=== PATIENT | male | born 1985 | race Caucasian/White ===

== ENCOUNTER 2018-10-17 19:15 | Emergency (ER) | payer OTHER ==
[2018-10-17] MEDS ORDERED: ONDANSETRON HCL INJ/PF 4 MG/2 ML SDV IV ONE (19:36)
[2018-10-17] MEDS ORDERED: FENTANYL CITRATE INJ/PF 100 MCG/2 ML AMPUL IV ONE (19:36)
--- NOTE | 2018-10-17 19:37 | ER Document Report ---
ED General - General Chief Complaint: Ankle Injury Stated Complaint: FOOT INJURY Time Seen by Provider: 10/17/18 19:29 Notes: Patient is a 33-year-old male that presents to the emergency department for chief complaint of right ankle injury. Patient reports that [place] jump park, when he was on a higher up landing, and jumped off into a foam pit, and unfortunately inverted his ankle, causing significant pain which he currently rates as a 10 out of 10 describes as a constant aching and throbbing sensation in his right ankle, he states that his ankle is stuck in the position that is in, and inversion. He reports he did sprained that ankle in the past, but it has been at least a few years. Denies any prior fractures or other injuries. He did not hit his head, and denies any complaints of neck pain, numbness, weakness or tingling. He reports this occurred approximately 1 hour prior to ED arrival. Past Medical History: Denies chronic medical conditions Past Surgical History: Denies surgical history Social History: Admits to occasional alcohol use, denies tobacco or illicit drug use. Family History: Reviewed and noncontributory for presenting illness Allergies: Reviewed, see documented allergy list. REVIEW OF SYSTEMS: Other than noted above, the 12 point review of systems was reviewed with the patient and were negative, all pertinent findings are included in the HPI. PHYSICAL EXAMINATION: Vital signs reviewed, nursing noted reviewed. GENERAL: Patient appears uncomfortable on exam, but in no acute distress HEAD: Atraumatic, normocephalic. EYES: Eyes appear normal, extraocular movements intact, sclera anicteric, conjunctiva are normal. ENT: nares patent, oropharynx clear without exudates. Moist mucous membranes. NECK: Normal range of motion, supple without lymphadenopathy LUNGS: Breath sounds clear to auscultation bilaterally and equal. No wheezes rales or rhonchi. HEART: Regular rate and rhythm without murmurs ABDOMEN: Soft, nontender, normoactive bowel sounds. No rebound, guarding, or rigidity. No masses appreciated. EXTREMITIES: The right ankle is in extreme inversion on exam, tender to palpate, there is no tenderness to the medial or lateral malleolus however. There is tenderness along the forefoot, without erythema, or breaks in the skin. Cap refill is less than 3 seconds in all digits, sensation is intact distally in all toes. The posterior tibial pulses +2/4. The patient is able to move all toes without difficulty as well. The patient's extremity exam otherwise is unremarkable. NEUROLOGICAL: No focal neurological deficits. Moves all extremities spontaneously Motor and sensory grossly intact on exam. PSYCH: Normal mood, normal affect. SKIN: Warm, Dry, normal turgor, no rashes or lesions noted on exposed skin TRAVEL OUTSIDE OF THE [place] IN LAST 30 DAYS: No - Related Data Allergies/Adverse Reactions: No Known Allergies Allergy (Verified 10/17/18 19:16) Past Medical History - Social History Smoking Status: Never Smoker Family History: Reviewed & Not Pertinent Physical Exam - Vital signs Vitals: Resp Pulse Ox 23 H 100 10/17/18 19:35 10/17/18 19:35 Course - Re-evaluation Re-evalutation: Patient seen and examined vital signs reviewed. Laboratory data and/or imaging were ordered as appropriate for the patient's presenting symptoms and complaint, with consideration of any critical or life threatening conditions that may be associated with their obtained history and exam as noted above. Patient was treated with IV fentanyl and Zofran for pain initially, and procedural sedation and fracture dislocation reduction, using propofol as noted, and splinted. Results were reviewed when available and demonstrated fracture dislocation of the subtalar joint The patient was re-evaluated and was improved, pain was controlled, after reduction, however I did obtain CT imaging of the ankle, due to the complexity of the patient's fracture dislocation noted on plain films, and likely need for surgery, and preoperative planning. I discussed the case with orthopedic surgery from [facility], with Dr. Redman, who wanted the patient to follow-up with Dr. Miller, foot and ankle surgeon, this was discussed with the patient, to call for an appointment tomorrow, he was given [place] dispense pack, prescription for Percocet to take for pain, given crutches, and advised to stay off of his foot completely until further seen. Evaluation was most consistent with traumatic fracture dislocation of the subtalar joint. Results were discussed with the patient at this point, after careful consideration I feel that that patient can be discharged from the emergency department, the patient was educated treatments and reasons to return to the emergency department based on their presumed diagnosis as noted above, they were advised to followup with a primary care physician in 2-3 days. Patient was agreeable to plan of care. *Note is created using voice recognition software and may contain spelling, syntax or grammatical errors. Ankle X-Ray 10/17/18 19:36 IMPRESSION: There is a complex subluxation of the right hindfoot, particularly involving the talonavicular joint and likely with fracture dislocation of the subtalar joint. Recommend CT to further evaluate anatomy of injury and fractu re, difficult to appreciate by standard radiographic views given gross deformity. - Vital Signs Vital signs: Temp Pulse Resp BP Pulse Ox 23 H 121/79 98 10/17/18 21:36 10/17/18 21:36 10/17/18 21:36 Procedures - Conscious Sedation Conscious sedation Consent obtained: Yes Indication: Right subtalar fracture-dislocation Last meal: 1 hours prior Prior complications: Procedural sedation Normal healthy pt.: P1. - ASA Classification Airway Evaluation: Normal anatomy Mallampati Classification: Class 1 Used during procedure: Suction available, IV access obtained, Pulse ox on pt., compliance monitor on pt. Medications administered: Diprivan - 210mg total I personally performed/intraservice time: Sedation, Procedure, 30 min or less Complications: No - Immobilization Right Ankle Pre-Proc Neuro Vasc Exam: Normal Immobilizer type: Ankle stirrup, Short Leg Posterior Performed by: Provider Post-Proc Neuro Vasc Exam: Normal Alignment checked and good: Yes - Joint Reduction/Fracture Care Right Ankle Consent obtained: Yes Conscious sedation: Yes Pre-procedure NV exam: Yes Fracture: Closed Post-procedure NV exam: Yes Post-reduction x-ray: Joint reduced Reduction attempts: 1 Complications: No Notes: Patient's subtalar fracture dislocation, was reduced with traction countertraction, and bring in the ankle laterally, it could not be completely reduced, due to the fracture dislocation and type of fracture, however it was more anatomical and patient was placed in a stirrup, and posterior splint of the ankle. Patient neurovascular exam was intact post reduction, and patient t olerated the procedure well. Discharge - Discharge Clinical Impression: Closed fracture dislocation of subtalar joint Condition: Stable Disposition: HOME, SELF-CARE Additional Instructions: Please follow-up with orthopedic surgery call for appointment tomorrow to schedule. Dr. Segundo Miller [facility] [address] [place] [id number] Please take the prescribed pain medication only as needed, every 6-8 hours, and do not put any weight on your foot, please stay off of it completely, keep it elevated, and use the crutches to get around. Prescriptions: Oxycodone HCl/Acetaminophen [Percocet 5-325 mg Tablet] 1 tab PO Q8H PRN #15 tab PRN Reason: ankle pain
--- NOTE | 2018-10-17 19:54 | RADIOLOGY REPORT (SQ) ---
EXAM DESCRIPTION: ANKLE RIGHT COMPLETE COMPLETED DATE/TIME: 10/17/2018 7:45 pm REASON FOR STUDY: ankle deformity COMPARISON: None. NUMBER OF VIEWS: Three views. TECHNIQUE: AP, lateral, and oblique radiographic images acquired of the right ankle. LIMITATIONS: None. FINDINGS: MINERALIZATION: Normal. BONES: There is a complex subluxation of the hindfoot, particularly involving the talonavicular joint and likely with fracture dislocation of the subtalar joint. JOINTS: No effusions. SOFT TISSUES: No soft tissue swelling. No foreign body. OTHER: No other significant finding. IMPRESSION: There is a complex subluxation of the right hindfoot, particularly involving the talonav icular joint and likely with fracture dislocation of the subtalar joint. Recommend CT to further karlee luate anatomy of injury and fracture, difficult to appreciate by standard radiographic views given gr oss deformity. TECHNICAL DOCUMENTATION: JOB ID: [id number] [employer]- All Rights Reserved Reading location - IP/workstation name: [email or web address]
[2018-10-17] MEDS ORDERED: PROPOFOL INJ 200 MG/20 ML VIAL IV ONE ×3 (20:06→20:58)
[2018-10-17] MEDS ORDERED: HYDROMORPHONE HCL INJ/PF 2 MG/ML AMPULE ONE (20:48)
[2018-10-17] MEDS ORDERED: HYDROMORPHONE HCL INJ/PF 2 MG/ML AMPULE IV ONE (20:59)
--- NOTE | 2018-10-17 21:28 | RADIOLOGY REPORT (SQ) ---
EXAM DESCRIPTION: XR ANKLE 2 VIEWS COMPLETED DATE/TME: 10/17/2018 00:00 CLINICAL HISTORY: 33 years, Male, POST REDUCTION COMPARISON: Prior study from earlier the same day NUMBER OF VIEWS: Two TECHNIQUE: Frontal and lateral radiographs of the right ankle were obtained. LIMITATIONS: None. Impression: Overlying cast obscures fine bony detail. Again visualized is bony overlap about the distal talus relative to the navicular, suggesting the presence of talonavicular joint dislocation. Likewise, portions of the talus appear malaligned with the subtalar joint, also indicating subtalar joint subluxation or dislocation. The lateral aspect of the ankle mortise appears asymmetrically widened compared to the lateral aspect, also indicating a component of tibiotalar joint subluxation. There is likely a fracture involving the talar dome/posterior aspect of the talus, poorly appreciated on this examination. copyright 2010 [facility] [employer]- All Rights Reserved
[2018-10-17] MEDS ORDERED: HYDROCODONE/ACETAMINOPHEN 5-325 MG (6 TAB/ER DISP) PO PRN (21:35)
[2018-10-17 21:50] VITALS: BP 121/79
--- NOTE | 2018-10-17 22:15 | RADIOLOGY REPORT (SQ) ---
CT LOWER EXTREMITY WITHOUT IV CONTRAST HISTORY: Right ankle subtalar fracture dislocation. COMPARISON: Radiographs from earlier the same day. TECHNIQUE: CT scan of the right ankle without IV contrast. This exam was performed according to our departmental dose-optimization program, which includes automated exposure control, adjustment of the mA and/or kV according to patient size and/or use of iterative reconstruction technique. FINDINGS: There is an acute fracture involving the posterior talar dome with approximately 8 mm diastases between the fracture fragments. There are multiple comminuted fracture fragments. Additionally, there is disruption of the ankle mortise with medial angulation and subluxation of the talus with respect to the tibial plafond. There is also inferior subluxation of the talus with respect to the navicular. Diffuse soft tissue swelling is present. No radiopaque foreign body is seen. Overlying cast is present. IMPRESSION: Moderately comminuted and displaced talar dome fracture with ankle mortise disruption and medial and inferior subluxation of the talus.
== END 2018-10-17 23:01 | disposition home or self-care (01) ==
LOC: ER 19:15
DX: S92.141A Displaced dome fracture of right talus, initial encounter for closed fracture (principal); X50.0XXA Overexertion from strenuous movement or load, initial encounter; Y93.39 Activity, other involving climbing, rappelling and jumping off; Y92.838 Other recreation area as the place of occurrence of the external cause
CPT/HCPCS: 99284; 99152; 96374; 96375; 73600; 73610; 73700; 28435; J3010; J1170; J2405; J2704